=== PATIENT | male | born 1980 | race African-American/Black ===

== ENCOUNTER 2016-10-24 01:00 | Emergency (ER) | payer SELFPAY ==
[2016-10-24] MEDS ORDERED: ASPIRIN 81 MG TABLET, CHEWABLE PO ONE (01:40)
--- NOTE | 2016-10-24 09:08 | EKG REPORT ---
SEVERITY:- OTHERWISE NORMAL ECG - SINUS RHYTHM SUPERIOR QRS AXIS : Confirmed by: Joan Yancey 24-Oct-2016 09:07:31
== END 2016-10-24 01:42 | disposition left against medical advice (07) ==
LOC: ER 01:00
DX: Z53.21 Procedure and treatment not carried out due to patient leaving prior to being seen by health care provider (principal)
CPT/HCPCS: 93005; 93010

== ENCOUNTER 2019-06-21 18:26 | Emergency (ER) | payer OTHER ==
[2019-06-21] MEDS ORDERED: ONDANSETRON 4 MG TAB.RAPDIS PO ONE (19:14)
[2019-06-21] MEDS ORDERED: OXYCODONE-ACETAMINOPHEN 5-325 MG TABLET PO ONE (19:14)
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
[2019-06-21] MEDS ORDERED: BACITRACIN ZINC OINTMENT 15 GM TP ONE (19:28)
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
[2019-06-21] MEDS ORDERED: IBUPROFEN 600 MG TABLET PO ONE (20:17)
[2019-06-21] MEDS ORDERED: DIAZEPAM 5 MG TABLET PO ONE (20:17)
[2019-06-21 20:30] VITALS: BP 205/136
[2019-06-21] MEDS ORDERED: LIDOCAINE 5% (700 MG) TRANSDERMAL ADH..PATCH TP SCH (20:30)
== END 2019-06-21 20:54 | disposition home or self-care (01) ==
LOC: ER 18:26
DX: S29.019A Strain of muscle and tendon of unspecified wall of thorax, initial encounter (principal); S60.552A Superficial foreign body of left hand, initial encounter; S16.1XXA Strain of muscle, fascia and tendon at neck level, initial encounter; S60.512A Abrasion of left hand, initial encounter; S60.511A Abrasion of right hand, initial encounter; M54.5 Low back pain; M79.10 Myalgia, unspecified site; R03.0 Elevated blood-pressure reading, without diagnosis of hypertension; V89.2XXA Person injured in unspecified motor-vehicle accident, traffic, initial encounter; F17.210 Nicotine dependence, cigarettes, uncomplicated
CPT/HCPCS: 99406; 99284; 73130; 70450; 72125; 72128; 72131; S0119; J3490

== ENCOUNTER 2020-10-13 18:58 | Emergency (ER) | payer SELFPAY ==
--- NOTE | 2020-10-13 19:29 | ER Document Report ---
ED Medical Screen (RME) - General Chief Complaint: Testicular Swelling Stated Complaint: TESTICULAR SWELLING Time Seen by Provider: 10/13/20 19:22 TRAVEL OUTSIDE OF THE [place] IN LAST 30 DAYS: No - HPI Notes: 10/13/20 19:27 39-year-old male presents to the emergency room today with complaints of right testicular enlargement, pain and swelling for the last 5 days. Denies any penile drainage. Denies any fevers or chills. Denies any issues with urination. Reports he did have an STD back in 2018. Denies any new sexual partners. Has not tried any [id number]-vzsetgf medications. Worse with time, nothing makes better. I have greeted and performed a rapid initial assessment of this patient. A comprehensive ED assessment and evaluation of the patient, analysis of test results and completion of the medical decision making process will be conducted by additional ED providers. PHYSICAL EXAMINATION: GENERAL: Well-appearing, well-nourished and in no acute distress. CV: s1, s2 regular LUNGS: No respiratory distress exam was not done in triage due to lack of privacy and bed The patient was evaluated during a global COVID-19 pandemic and that diagnosis was suspected/considered upon their initial presentation. Their evaluation, treatment and testing was consistent with current guidelines for patients who present with complaints or symptoms and may be related to COVID-19. - Related Data Allergies/Adverse Reactions: No Known Allergies Allergy (Unverified 09/01/14 11:01) Physical Exam - Vital signs Vitals: Temp Pulse Resp BP Pulse Ox 99.6 F 100 20 197/117 H 97 10/12/20 19:01 10/12/20 19:01 10/12/20 19:01 10/12/20 19:01 10/12/20 19:01 Course - Vital Signs Vital signs: Temp Pulse Resp BP Pulse Ox 99.6 F 100 20 197/117 H 97 10/12/20 19:01 10/12/20 19:01 10/12/20 19:01 10/12/20 19:01 10/12/20 19:01
[2020-10-13 20:07] LABS: APPEARANCE,URINE SLIGHTLY-CLOUDY; BILIRUBIN,URINE NEGATIVE (NEGATIVE); COLOR,URINE YELLOW; GLUCOSE, URINE NEGATIVE (NEGATIVE); KETONES,URINE NEGATIVE (NEGATIVE); LEUKOCYTE ESTERASE,URINE TRACE (NEGATIVE); NITRITE,URINE NEGATIVE (NEGATIVE); PROTEIN,URINE 100 mg/dL (NEGATIVE); URINE SPECIFIC GRAVITY 1.024
--- NOTE | 2020-10-13 20:48 | RADIOLOGY REPORT (SQ) ---
EXAM DESCRIPTION: U/S SCROTUM W/DOPPLER CLINICAL HISTORY: 39 years Male; R testicular pain/swelling x5 days TECHNIQUE: Marquez-scale, color, and spectral Doppler images were obtained of the testes and scrotum. COMPARISON: None FINDINGS: Right testicle: The testicle measures 3.3 x 4.4 x 3.1 cm. Echotexture is heterogeneous. There is diffuse increased blood flow in the testicle. Epididymal head measures 1.9 x 1.0 cm and there is diffuse increased vascularity. In the body and tail of the epididymis are two hypoechoic areas which may contain air. The first measures 1.2 x 1.1 x 1.0 cm and the other is not measured but is somewhat smaller. This is worrisome for possible abscess within the epididymis. Dilated veins appear superior to the testicle and are hypervascular. Unclear if this represents a small varicocele or is part of the epididymal orchitis seen. Left testicle: The testicle measures. 2.4 x 4.0 x 2.6 cm. Blood flow and echogenicity is normal. The head of the epididymis measures 1.8 x 0.8 cm and has normal blood flow. There is a mildly complex hydrocele which contains debris. IMPRESSION: 1. Marked increased vascularity of the right epididymis and testicle consistent with epididymal orchitis. 2. Two hypoechoic areas in the body and tail of the epididymis which have punctate specular shadows suggestive of air. This is concerning for two small abscess within the epididymis. 3. Mildly complex left-sided hydrocele.
[2020-10-13] MEDS ORDERED: IBUPROFEN 800 MG TABLET PO ONE (22:28)
[2020-10-13] MEDS ORDERED: CEFTRIAXONE INJ 250 MG VIAL IM ONE (22:28)
[2020-10-13] MEDS ORDERED: AZITHROMYCIN 1 GM SUSP PACKET PO ONE (22:28)
--- NOTE | 2020-10-13 22:44 | ER Document Report ---
Entered by LIANA KOEHLER SCRIBE 10/13/20 [id number] Acting as scribe for:ZEESHAN BANG DO ED General - General Chief Complaint: Testicular Swelling Stated Complaint: TESTICULAR SWELLING Time Seen by Provider: 10/13/20 19:22 Mode of Arrival: Ambulatory Information source: Patient Notes: This 39 year old male patient presents to the emergency department today with complaints of right testicular pain and swelling. He reports that he first noticed the pain and swelling about four days ago and it has progressed since onset. Patient admits to unprotected sex with his girlfriend. He has hypertension but does not take his medication. He denies any penile discharge. TRAVEL OUTSIDE OF THE [place] IN LAST 30 DAYS: No - Related Data Allergies/Adverse Reactions: No Known Allergies Allergy (Verified 10/13/20 19:33) Home Medications: HCTZ, losartam, amilodipine, clonidine Past Medical History - General Information source: Patient - Social History Smoking Status: Never Smoker Cigarette use (# per day): No Frequency of alcohol use: None Drug Abuse: None Lives with: Family Family History: Reviewed & Not Pertinent - Past Medical History Cardiac Medical History: Reports: Hx Hypertension Surgical Hx: Negative Review of Systems - Review of Systems Constitutional: No symptoms reported EENT: No symptoms reported Cardiovascular: No symptoms reported Respiratory: No symptoms reported Gastrointestinal: No symptoms reported Genitourinary: No symptoms reported Male Genitourinary: See HPI, Testicular pain - right. denies: Penile discharge Musculoskeletal: No symptoms reported Skin: No symptoms reported Hematologic/Lymphatic: No symptoms reported Neurological/Psychological: No symptoms reported -: Yes All other systems reviewed and negative Physical Exam - Vital signs Vitals: Temp Pulse Resp BP Pulse Ox 99.6 F 100 20 197/117 H 97 10/12/20 19:01 10/12/20 19:01 10/12/20 19:01 10/12/20 19:01 10/12/20 19:01 - Notes Notes: Physical Exam: General: Alert, appears well. HEENT: Normocephalic. Atraumatic. PERRL. Extraocular movements intact. Oropharynx clear. Neck: Supple. Non-tender. Respiratory: No respiratory distress. Clear and equal breath sounds bilaterally. Cardiovascular: Regular rate and rhythm. Abdominal: Normal Inspection. Non-tender. No distension. Normal Bowel Sounds. Back: No gross abnormalities. Male genitourinary: Right testicle is grossly swollen, indurated, and tender to palpation over the epididymis. Left testicle is normal in appearance. There is no penile discharge. Extremities: Moves all four extremities. Upper extremities: Normal inspection. Normal ROM. Lower extremities: Normal inspection. No edema. Normal ROM. Neurological: Normal cognition. AAOx4. Normal speech. Psychological: Normal affect. Normal Mood. Skin: Warm. Dry. Normal color. Course - Re-evaluation Re-evalutation: 10/13/20 22:44 MDM 39 year old with right sided testicle pain and swelling and exam consistent with epididymitis. No discharge. Sexually active and discussed no sex, medicine as directed and return precautions. He expressed understanding. Having side effects of htn medicine reportedly. - Vital Signs Vital signs: Temp Pulse Resp BP Pulse Ox 98.6 F 89 18 199/118 H 99 10/13/20 23:19 10/13/20 23:19 10/13/20 23:19 10/13/20 23:19 10/13/20 23:19 - Laboratory Results Laboratory Results Interpreted: 10/13/20 19:35 Urine Protein 100 H Urine Urobilinogen 2.0 H Ur Leukocyte Esterase TRACE H Urine Ascorbic Acid 40 H Critical Laboratory Results Reviewed: No Critical Results - Radiology Results Critical Radiology Results Reviewed: No Critical Results Discharge - Discharge Clinical Impression: Epididymal abscess, Epididymitis Condition: Stable Disposition: HOME, SELF-CARE Instructions: Anti-Inflammatory Medication ([facility]), Cephalexin ([facility]), Doxycycline ([facility]), Epididymitis ([facility]), Warm Packs ([facility]) Additional Instructions: Take the medicine as directed. Finish the antibiotic. Return here for inability to tolerate the medicine, persistent vomiting, other problems or concerns. Your blood pressure was elevated here and should be rechecked. We have changed your blood pressure medicine tonight. Prescriptions: Hydrochlorothiazide 12.5 mg PO DAILY #30 tablet Cephalexin Monohydrate [Keflex 500 mg Capsule] 500 mg PO TID #30 capsule Ibuprofen [Motrin 600 mg Tablet] 600 mg PO TID #30 tablet Doxycycline Hyclate [Vibramycin 100 mg Tablet] 100 mg PO BID #28 tablet Forms: Elevated Blood Pressure I personally performed the services described in the documentation, reviewed and edited the documentation which was dictated to the scribe in my presence, and it accurately records my words and actions.
[2020-10-13] MEDS ORDERED: HYDRALAZINE HCL 25 MG TABLET PO ONE (22:46)
[2020-10-13] MEDS ORDERED: LIDOCAINE 1% INJ-PF (10 MG/ML) 30 ML SDV ONE (22:58)
[2020-10-13 23:25] VITALS: BP 199/118
== END 2020-10-13 23:24 | disposition home or self-care (01) ==
LOC: ER 18:58
DX: N45.4 Abscess of epididymis or testis (principal); N45.1 Epididymitis; N43.3 Hydrocele, unspecified; I10 Essential (primary) hypertension; T50.2X6A Underdosing of carbonic-anhydrase inhibitors, benzothiadiazides and other diuretics, initial encounter; T46.5X6A Underdosing of other antihypertensive drugs, initial encounter; T46.1X6A Underdosing of calcium-channel blockers, initial encounter; Z91.14 Patient's other noncompliance with medication regimen
CPT/HCPCS: 99285; 96372; 81001; 76870; 93976; Q0144; J0696